=== PATIENT | female | born 1995 | race Caucasian/White ===

== ENCOUNTER 2018-04-13 19:27 | Emergency (ER) | payer OTHER ==
[~2018-04-13] VITALS: Ht 160 cm; Wt 82.2 kg
[2018-04-13 19:33] VITALS: Ht 160 cm; Wt 82.2 kg
[2018-04-13] MEDS ORDERED: OXYCODONE/ACETAMINOPHEN (5/325) TAB PO ONE (23:00)
[2018-04-14] MEDS ORDERED: HYDR-4011 PO (00:48)
[2018-04-14] MEDS ORDERED: IBUP-1542 PO (00:48)
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
[2018-04-14] MEDS ORDERED: IOHEXOL 300MG/ML 150 ML BTL ONE (03:26)
[2018-04-14] MEDS ORDERED: SOD CHLORIDE 0.9% 100 ML ONE (03:26)
[2018-04-14 04:55] VITALS: BP 113/64; PULSE 77; RESP 20
== END 2018-04-14 04:56 | disposition home or self-care (01) ==
LOC: FTE 19:27
DX: S49.91XA Unspecified injury of right shoulder and upper arm, initial encounter (principal); S29.9XXA Unspecified injury of thorax, initial encounter; S39.91XA Unspecified injury of abdomen, initial encounter; G89.11 Acute pain due to trauma; S30.1XXA Contusion of abdominal wall, initial encounter; V47.5XXA Car driver injured in collision with fixed or stationary object in traffic accident, initial encounter
CPT/HCPCS: 36415; 71045; 73030; 74177; 76705; 80048; 81003; 81025; 85025; Q9967; Z7502; Z7610